=== PATIENT | female | born 1985 | race Caucasian/White ===

== ENCOUNTER → 2016-07-22 | Outpatient (CLI) | payer BC ==
[~2016-07-22] MED LIST: /MOM400 GT; /MOM400 PO; ACET50TA PO; COLA50CA3 PO; HEMOSUP20 TOP; IBUP600T26 PO; LANOOIN21 TOP; MACR100C3 PO; PRENTAB13 PO
--- NOTE | 2016-07-23 05:41 | REP ---
Clinical: Anatomical evaluation. Comparison: 06/18/2016 . Findings: Examination demonstrates a single live intrauterine in breech presentation. motion is identified by technologist. Placenta is noted anteriorly and grade zero without evidence for placenta previa or abruption. Amniotic fluid volume is normal. Cervix measures 3.6 cm in length and appears closed. No evidence for nuchal cord. Gestational age by LMP 23 week 6 days with AZUL 11/12/2016 . Gestational age by current measurements 22 weeks 6 days with AZUL 11/19/2016 . FHR equals 139 beats per minute. Estimated weight 580 grams ( 27th percentile). Anatomical assessment demonstrates normal structures including cranium, choroid plexus, cavum, cerebellum/posterior fossa, facial features, lungs, four-chamber heart/ventricular outflow tracts, diaphragm, stomach, cord insertion/three-vessel cord, kidneys/bladder, spine, and extremities. Impression: Breech presentation demonstrating appropriate interval growth. Anatomical assessment is complete and normal. Signed by Donato Savage MD 07/23/2016 05:33 A
== END ==
LOC: M SMT 14:54
PROVIDERS: ATTEND Specialist
DX: Z34.82 Encounter for supervision of other normal pregnancy, second trimester (principal)

== ENCOUNTER → 2016-08-15 | Outpatient (CLI) | payer BC ==
[2016-08-15 13:31] LABS: BASO % 0.2 % (0.0-1.0); EOS # 0.1 K/mm3 (0.0-0.50); EOS % 0.9 % (0.0-3.0); LARGE UNSTAINED CELL # 0.2 K/mm3 (0.0-0.4); LARGE UNSTAINED CELL % 2.3 % (0.0-4.0); LYMPH # 1.1 K/mm3 (1.5-4.5); LYMPH % 13.1 % (24.0-44.0); MEAN CORPUSCULAR HEMOGLOBIN 31.6 pg (27.0-33.0); MEAN CORPUSCULAR HGB CONC 34.1 g/dl (32.0-36.5); MEAN CORPUSCULAR VOLUME 92.6 fl (80.0-96.0); MONO # 0.5 K/mm3 (0.0-0.8); MONO % 6.3 % (0.0-5.0); NEUTROPHILS # 6.2 K/mm3 (1.8-7.7); NEUTROPHILS % 77.2 % (36.0-66.0); PLATELET COUNT, AUTOMATED 212 k/mm3 (150-450); RED CELL DISTRIBUTION WIDTH 12.7 % (11.5-14.5); WHITE BLOOD COUNT 8.1 K/mm3 (4.0-10.0)
== END ==
LOC: M WUC 11:04
PROVIDERS: ATTEND Obstetrics & Gynecology
DX: Z34.82 Encounter for supervision of other normal pregnancy, second trimester (principal); Z36 Encounter for antenatal screening of mother; Z3A.00 Weeks of gestation of pregnancy not specified

== ENCOUNTER → 2016-09-16 | Outpatient (CLI) | payer BC ==
--- NOTE | 2016-09-16 15:48 | REP ---
Clinical: Gestational diabetes. Growth evaluation. Comparison: 07/22/2016 . Findings: Examination demonstrates a single live intrauterine in cephalic presentation. motion is identified by technologist. Placenta is noted anteriorly and grade one without evidence for placenta previa or abruption. Amniotic fluid volume is normal. Cervix measures 3.3 cm in length and appears closed. No evidence for nuchal cord. Gestational age by LMP 31 weeks 6 days with AZUL 11/12/2016 . Gestational age by current measurements 31 weeks 2 days with AZUL 11/16/2016 . Amniotic fluid index equals 10.2 cm (8.6 - 24.2). FHR equals 139 beats per minute. BPD 7.8 cm 31 weeks 3 days HC 28.5 cm 31 weeks 2 days AC 27.1 cm 31 weeks 1 day FL 6.2 cm 32 weeks 0 days HL 5.6 cm 32 weeks 2 days HC/AC ratio 1.05 Estimated weight 1776 grams ( 35th percentile). Limited anatomical assessment demonstrates no gross abnormalities. Impression: Single live intrauterine in cephalic presentation demonstrating appropriate interval growth. Signed by Donato Savage MD 09/16/2016 03:39 P
== END ==
LOC: M SMT 14:49
PROVIDERS: ATTEND Specialist
DX: O36.5932 Maternal care for other known or suspected poor fetal growth, third trimester, fetus 2 (principal); Z36 Encounter for antenatal screening of mother; Z3A.31 31 weeks gestation of pregnancy

== ENCOUNTER → 2016-10-16 | Outpatient (REF) | payer BC | LOC: M LAB REF 17:16 | PROVIDERS: ATTEND Specialist | DX: Z34.83 Encounter for supervision of other normal pregnancy, third trimester (principal); Z36 Encounter for antenatal screening of mother; Z3A.00 Weeks of gestation of pregnancy not specified; R30.0 Dysuria ==

== ENCOUNTER → 2016-10-17 | Outpatient (CLI) | payer BC ==
--- NOTE | 2016-10-17 15:09 | REP ---
REASON: Assess growth. There is a history of gestational diabetes. Multiple sonographic images of the gravid uterus show a single living intrauterine gestation in the cephalic presentation. Doppler interrogation of the heart shows the heart rate of 153 beats per minute. The placenta is anterior and not low-lying. The subjective amniotic fluid volume is normal. The calculated amniotic fluid index is 9.5, which is within normal limits with an expected range of 7.6 to 24.8. Doppler interrogation of the umbilical artery shows an AB ratio of 2.20. This is within the normal range of 1.88 to 2.88. The fetus was too large for an anatomical screening. CHART: BPD 8.7 cm = 35 weeks 1 day HC 31.1 cm = 34 weeks 5 days AC 30.9 cm = 34 weeks 6 days FL 6.9 cm = 35 weeks 3 days The estimated weight is 2570 grams, which is at the 30th percentile for a 89-mhzn-0-day gestational age. IMPRESSION: Single living intrauterine gestation as described above with an estimated gestational age of 34 weeks 5 days via composite criteria with an estimated date of delivery of 11/23/2016 by today's exam. Signed by Wes Farley DO 10/17/2016 03:14 P
== END ==
LOC: M SMT 13:49
PROVIDERS: ATTEND Obstetrics & Gynecology
DX: O24.415 Gestational diabetes mellitus in pregnancy, controlled by oral hypoglycemic drugs (principal); Z36 Encounter for antenatal screening of mother; Z3A.34 34 weeks gestation of pregnancy

== ENCOUNTER 2016-10-26 20:02 | Inpatient (IN) | payer BC ==
[~2016-10-26] VITALS: Ht 162.6 cm; Wt 62.5 kg
[2016-10-26 20:21] VITALS: BP 116/71
[2016-10-26 20:53] VITALS: BP 116/71
[2016-10-26 20:59] LABS: MEAN CORPUSCULAR HEMOGLOBIN 32.1 pg (27.0-33.0); MEAN CORPUSCULAR HGB CONC 34.5 g/dl (32.0-36.5); MEAN CORPUSCULAR VOLUME 92.9 fl (80.0-96.0); RED CELL DISTRIBUTION WIDTH 13.4 % (11.5-14.5); WHITE BLOOD COUNT 8.2 K/mm3 (4.0-10.0)
[2016-10-26] MEDS ORDERED: LR 1,000 ML IV SCH (22:42)
[2016-10-26] MEDS ORDERED: OXYTOCIN DRIP 30 UNITS in APPROPRIATE DILUENT 1 EA IV SCH (22:45)
[2016-10-26 23:06] VITALS: BP 112/78
--- NOTE | 2016-10-27 00:16 | HPE ---
DATE OF ADMISSION: 10/26/2016 REASON FOR ADMISSION: Induction of labor for gestational diabetes. HISTORY OF PRESENT ILLNESS: Mrs. Dias is a 31-year-old 3, para 2, who presents at 38 weeks 6 days estimated gestational age by a 7-week ultrasound here for induction of labor. Her course is remarkable for moderately controlled A2 gestational diabetes. She initiated care in her first trimester and has been appropriate throughout. Her diabetes was managed with metformin and she has been managed also with serial ultrasounds and weekly antepartum testing. PAST MEDICAL HISTORY: None. PAST SURGICAL HISTORY: None. PAST OBSTETRICAL HISTORY: She is a 3, para 2. She has had two term vaginal deliveries. Both have been complicated with A1 gestational diabetes. She has proven to 6 pounds 5 ounces. MEDICATIONS: Include metformin, Zantac, and vitamins. ALLERGIES: She has allergies to AMOXICILLIN as a child, she developed a rash. SOCIAL HISTORY: She denies any alcohol, tobacco, or drug use during her . She lives at home with her and two sons. PHYSICAL EXAMINATION: VITAL SIGNS: Stable. She is afebrile. She has a category 1 heart rate tracing with contractions on tachometer. GENERAL APPEARANCE: Well appearing, no acute distress. LUNGS: Clear to auscultation bilaterally. CARDIOVASCULAR: Heart is regular rate and rhythm. ABDOMEN: Gravid, nontender. Estimated weight (EFW) 2700 grams. CERVICAL EXAMINATION: She is 2-3 cm dilated, 75% effaced, -2 station. LABORATORIES: Her blood type is O positive. Antibody screen is negative. Rubella is immune. RPR is nonreactive. Hepatitis surface antigen is negative. HIV is negative. Hepatitis C is nonreactive. Chlamydia and gonorrhea screens are negative. She is group B Streptococcus (GBS) positive. ASSESSMENT: 1. Mrs. Dias is a 31-year-old 3, para 2, who is at 38 weeks 6 days estimated gestational age by first trimester ultrasound here for induction of labor. 2. A2 gestational diabetes. 3. Reassuring status. 4. Group B Streptococcus (GBS) positive. PLAN: 1. Admit to labor and delivery. CBC, RPR, type and screen. 2. Will initiate antibiotic therapy followed by induction of labor at midnight at which time patient will be at 39 weeks. 3. Patient has been thoroughly counseled with regards to induction of labor. I discussed medications, procedures performed. I discussed the role of antibiotics for her GBS status and plan for initiate induction of labor at 39 weeks. She has also been verbally consented for emergency surgery, blood products and anesthesia and desires to proceed with admission. Will initiate her induction with Pitocin.
[2016-10-27] MEDS ORDERED: ceFAZolin SOD 1 GM in D5W MINI-BAG PLUS 50 ML IV SCH (05:00)
== END 2016-10-26 23:17 | disposition home or self-care (01) | DRG 566 ==
LOC: M LDI 20:02
PROVIDERS: ADMIT Obstetrics & Gynecology; ATTEND Obstetrics & Gynecology
PROC: 3E033VJ Introduction of Other Hormone into Peripheral Vein, Percutaneous Approach (ICD-10-PCS; principal; 2016-10-26)
DX: O24.415 Gestational diabetes mellitus in pregnancy, controlled by oral hypoglycemic drugs (principal); Z3A.38 38 weeks gestation of pregnancy; Z79.84 Long term (current) use of oral hypoglycemic drugs; Z88.0 Allergy status to penicillin

== ENCOUNTER 2016-11-03 10:54 | Inpatient (IN) | payer BC ==
[2016-11-03] VITALS (38 sets, daily range): BP systolic 95–135; BP diastolic 56–85
[~2016-11-03] VITALS: Ht 162.6 cm; Wt 55.0 kg
[2016-11-03] MEDS ORDERED: LACTATED RINGER'S 1000 ML IV STA (11:32)
[2016-11-03] MEDS ORDERED: LR 1,000 ML IV SCH ×2 (11:32)
[2016-11-03] MEDS ORDERED: OXYTOCIN DRIP 30 UNITS in APPROPRIATE DILUENT 1 EA IV SCH (11:45)
[2016-11-03] MEDS ORDERED: METF1000 PO (11:57)
--- NOTE | 2016-11-03 12:03 | HPE ---
DATE OF ADMISSION: 11/03/2016 31-year-old 3, para 2-0-0-2, estimated date of delivery 11/10/2016 here at 39 weeks for induction of labor due to gestational diabetes. Denies regular contractions, loss of fluid or bleeding. Fetus is active. Last normal menstrual period 02/04/2016 for estimated date of delivery (AZUL) 11/10/2016, sonogram at 7 weeks confirmed her date. Anatomy scan within normal limits. complicated by A2 gestational diabetes, taking metformin 500 mg twice a day. Antepartum testing was been reassuring. Appropriate growth scans. ALLERGIES: She is allergic to PENICILLIN, causes a rash. OBSTETRICAL HISTORY: 2010, normal spontaneous vaginal , viable male 39 weeks, 6 pounds 5 ounces. 2012, normal spontaneous vaginal , viable male 37 weeks 6 pounds 4 ounces. PAST MEDICAL HISTORY/PAST SURGICAL HISTORY: Gestational diabetes. FAMILY HISTORY: Autism. SOCIAL HISTORY: . Father of the baby present and supportive. Denies tobacco, alcohol, drugs or abuse. OBJECTIVE Prepregnancy weight 105, total weight gain 20 pounds. O+, antibody negative, rubella immune, VDRL, hepatitis B, hepatitis C, HIV, gonorrhea, Chlamydia all negative. Glucose test not performed due to history of glucose intolerance and group B strep is positive. Vital signs are stable. She is in no apparent distress. Heart rate is regular. Respirations are easy. Abdomen is soft, gravid, longitudinal lie. Irregular contractions. heart 145, category 1. Sterile vaginal exam 2 to 3 cm, 80% -2. ASSESSMENT: 1. Multiparous at term. 2. A2 gestational diabetes for induction of labor. PLAN: Admit per consult Dr. Ponce. Pitocin induction of labor. Group B strep prophylaxis with Ancef. The patient has tolerated the medication previously. The patient plans epidural. Anticipate normal spontaneous vaginal .
[2016-11-03 12:50] LABS: MEAN CORPUSCULAR HEMOGLOBIN 32.1 pg (27.0-33.0); MEAN CORPUSCULAR HGB CONC 33.6 g/dl (32.0-36.5); MEAN CORPUSCULAR VOLUME 95.5 fl (80.0-96.0); RED CELL DISTRIBUTION WIDTH 13.3 % (11.5-14.5)
[2016-11-03] MEDS ORDERED: FENTANYL 2MCG/ML ROPIVACAINE 0.2% IN 0.9% NACL 200ML IVBAG As Ordered ONE (16:10)
[2016-11-03] MEDS ORDERED: diphenhydrAMINE INJ 50MG/ML VIAL (J1200) IV PRN (16:45)
[2016-11-03] MEDS ORDERED: NALOXONE INJ 0.4 MG/1 ML VIAL (J2310) IV PRN (16:45)
[2016-11-03] MEDS ORDERED: EPIDURAL/PCA KEYS XX PRN (16:45)
[2016-11-03] MEDS ORDERED: ePHEDrine SULFATE 25 MG/5 ML(5MG/ML) SYRINGE IV PRN (16:45)
[2016-11-03] MEDS ORDERED: EPIDURAL COMMENT XX SCH (16:45)
[2016-11-03] MEDS ORDERED: ONDANSETRON 4MG/2ML VIAL (J2405) IV PRN (16:45)
[2016-11-03] MEDS ORDERED: REFRIGERATOR IV KEYS XX PRN (16:45)
[2016-11-03] MEDS ORDERED: FENTANYL/ROPIVACAINE/NACL BAG 200 ML EPIDURAL SCH (16:45)
[2016-11-03] MEDS ORDERED: LACTATED RINGER'S 1000 ML IV PRN (16:45)
[2016-11-03] MEDS ORDERED: ceFAZolin SOD 1 GM in D5W MINI-BAG PLUS 50 ML IV SCH (20:30)
[2016-11-03 21:51] LABS: CORD GAS ABE V -2.4; CORD GAS HCO3 A 23.2 MEQ/L; CORD GAS HCO3 V 23.2 MEQ/L; CORD GAS O2 SAT A 49.6 %; CORD GAS O2 SAT V 54.6 %; CORD GAS PCO2 A 45.7 mmHg; CORD GAS PCO2 V 42.8 mmHg; CORD GAS PH A 7.323 UNITS; CORD GAS PH V 7.352 UNITS; CORD GAS PO2 A 21.9 mmHg; CORD GAS PO2 V 23.7 mmHg; CORD GAS SBC V 21.5 MEQ/L; CORD GAS TCO2 A 24.6 MEQ/L; CORD GAS TCO2 V 24.5 MEQ/L
[2016-11-03] MEDS ORDERED: DIBUCAINE 1% OINTMENT 30GM TOP PRN (22:00)
[2016-11-03] MEDS ORDERED: METHYLERGONOVINE MALEATE 0.2 MG TAB PO PRN (22:00)
[2016-11-03] MEDS ORDERED: MEASLES,MUMPS,RUBELLA VACCINE INJ (MMR-II) (90707) SC SCH (22:00)
[2016-11-03] MEDS ORDERED: MOM 30ML SUSPENSION UDC PO PRN (22:00)
[2016-11-03] MEDS ORDERED: RHOGAM 300 MCG (1500 IU) INJ (J2790) IM SCH (22:00)
[2016-11-03] MEDS ORDERED: DOCUSATE SODIUM 100 MG CAP PO PRN (22:00)
[2016-11-04] MEDS: ACETAMINOPHEN 500 MG TAB PO PRN ×2 (04:24→20:37)
--- NOTE | 2016-11-04 05:28 | DN ---
DATE: 11/03/2016 Artificial rupture of membranes, clear fluid 16:56. Fully dilated 20:57. Viable male delivered [place] through double nuchal cord and compound with right posterior arm at 21:06. Spontaneous respirations with stimulation. Transitioned on maternal abdomen. Cord doubly clamped and cut once pulsation ceased. 9 and 9. Cord gas is obtained. Placenta Simon intact with three-vessel cord at 21:14. Fundus firmed massage and IV Pitocin bolus. First-degree perineal laceration repaired with 3-0 Vicryl rapide. Estimated blood loss 100 mL. Infant weight 2,660 grams, 5 pounds 14 ounces. Sharp, sponge and instrument count correct. MTDD
[2016-11-04 06:13] VITALS: BP 122/72
[2016-11-04] MEDS: PRENATAL VITAMIN TAB PO SCH (08:17)
[2016-11-04] MEDS: IBUPROFEN 800 MG TAB PO PRN ×2 (10:28→18:21)
[2016-11-04 18:20] VITALS: BP_SYST 112; BP_SYST 98; BP_DIAS 60; BP_DIAS 64
[2016-11-05] MEDS: IBUPROFEN 800 MG TAB PO PRN (05:48)
[2016-11-05 06:00] VITALS: BP 109/52
[2016-11-05] MEDS: PRENATAL VITAMIN TAB PO SCH (07:32)
[2016-11-05] MEDS ORDERED: PRENTAB13 PO (09:57)
[2016-11-05] MEDS ORDERED: ACET50TA PO (09:57)
[2016-11-05] MEDS ORDERED: IBUP-1114 PO (09:57)
== END 2016-11-05 11:13 | disposition home or self-care (01) | DRG 560 ==
LOC: M LDI 10:54 → M OBS 23:37
PROVIDERS: ADMIT Advanced Practice Midwife; ATTEND Advanced Practice Midwife
PROC: 10E0XZZ Delivery of Products of Conception, External Approach (ICD-10-PCS; principal; 2016-11-03)
PROC: 10907ZC Drainage of Amniotic Fluid, Therapeutic from Products of Conception, Via Natural or Artificial Opening (ICD-10-PCS; 2016-11-03)
PROC: 0HQ9XZZ Repair Perineum Skin, External Approach (ICD-10-PCS; 2016-11-03)
PROC: 3E0DXGC Introduction of Other Therapeutic Substance into Mouth and Pharynx, External Approach (ICD-10-PCS; 2016-11-03)
DX: O24.425 Gestational diabetes mellitus in childbirth, controlled by oral hypoglycemic drugs (principal); O64.5XX0 Obstructed labor due to compound presentation, not applicable or unspecified; O69.82X0 Labor and delivery complicated by other cord entanglement, without compression, not applicable or unspecified; Z37.0 Single live birth; Z3A.39 39 weeks gestation of pregnancy; Z88.0 Allergy status to penicillin; Z79.84 Long term (current) use of oral hypoglycemic drugs; Z82.8 Family history of other disabilities and chronic diseases leading to disablement, not elsewhere classified; O70.0 First degree perineal laceration during delivery

== ENCOUNTER → 2016-12-24 | Outpatient (CLI) | payer BC ==
[~2016-12-24] MED LIST changes: +IBUP-1114 PO; +METF10004 PO; +PRENTAB20 PO
== END ==
LOC: M WUC 17:01
PROVIDERS: ATTEND Internal Medicine Endocrinology, Diabetes & Metabolism
DX: R73.02 Impaired glucose tolerance (oral) (principal)

== ENCOUNTER → 2017-02-19 | Outpatient (CLI) | payer BC | LOC: M WUC 08:43 | PROVIDERS: ATTEND Internal Medicine Endocrinology, Diabetes & Metabolism | DX: R73.02 Impaired glucose tolerance (oral) (principal) ==

== ENCOUNTER → 2018-05-04 | Outpatient (REF) | payer BC ==
[2018-05-06 14:22] LABS: HPV HYBRID CAPTURE II Negative (Negative)
== END ==
LOC: M LAB REF 13:56
DX: Z01.419 Encounter for gynecological examination (general) (routine) without abnormal findings (principal); Z11.51 Encounter for screening for human papillomavirus (HPV)

== ENCOUNTER → 2018-05-07 | Outpatient (CLI) | payer BC | LOC: M RAD 12:47 | DX: N92.0 Excessive and frequent menstruation with regular cycle (principal) | CPT/HCPCS: 76856 ==

== ENCOUNTER → 2021-07-17 | Outpatient (REF) | payer BC ==
[~2021-07-17] MED LIST changes: -/MOM400 GT; -/MOM400 PO; -ACET50TA PO; +MAPA500T17 PO; +MAPA500T2 PO; +MILK10SU GT; +MILK10SU PO
== END ==
LOC: M SFHCWAGY 17:19
PROVIDERS: ATTEND Obstetrics & Gynecology
DX: Z01.419 Encounter for gynecological examination (general) (routine) without abnormal findings (principal)

== ENCOUNTER → 2022-07-11 | Outpatient (REF) | payer BC ==
[2022-07-11 14:08] LABS: IMMUNOGLOBULIN A 103.1 MG/DL (40-350); PERCENT SATURATION 45.8 % (13.2-45.0)
[2022-07-11 14:11] LABS: FERRITIN 12.2 NG/ML (7.3-270.7)
[2022-07-12 17:08] LABS: ENDOMYSIAL ABY IgA Negative (Negative); TISSUE TRANSGLUTAMINASE IgA <2 U/mL (0-3)
== END ==
LOC: M LAB REF 12:12
PROVIDERS: ATTEND Internal Medicine
DX: E61.1 Iron deficiency (principal)

== ENCOUNTER → 2022-08-28 | Outpatient (CLI) | payer BC | LOC: M WHC 14:42 | PROVIDERS: ATTEND Internal Medicine | DX: N93.9 Abnormal uterine and vaginal bleeding, unspecified (principal) ==

== ENCOUNTER → 2024-02-12 | Outpatient (REF) | payer BC ==
[2024-02-12 15:54] LABS: MONO SCRN NEGATIVE (NEGATIVE)
== END ==
LOC: M LAB REF 14:39
PROVIDERS: ATTEND Physician Assistant
DX: B34.9 Viral infection, unspecified (principal)

== ENCOUNTER → 2024-08-12 | Outpatient (REF) | payer BC ==
[2024-08-12 14:32] LABS: PERCENT SATURATION 16.5 % (13.2-45.0)
[2024-08-12 14:37] LABS: FERRITIN 5.3 NG/ML (7.3-270.7)
== END ==
LOC: M LAB REF 12:14
PROVIDERS: ATTEND Internal Medicine
DX: E61.1 Iron deficiency (principal)